=== PATIENT | female | born 1985 | race Caucasian/White ===

== ENCOUNTER 2016-04-27 10:09 | Day surgery (SDC) | payer OTHER ==
[~2016-04-27 10:09] MED LIST: ADULT LOW DOSE81 M1 PO; DENIES; FERROUS SULFATE PO; IBUPROFEN800 MG PO; IRON325 M1 PO; MACROBID 100 M100 MG PO; NORCO 5-325 TA1 EACH PO; PREFERA OB TAB1 EACH PO; PRENATAL PO; PROCARDIA10 MG PO; VISTARIL50 MG PO
== END 2016-04-27 15:35 ==
LOC: SHSB 10:09 → PACU 12:53 → SHSB 13:25
PROC: 10D17ZZ Extraction of Products of Conception, Retained, Via Natural or Artificial Opening (ICD-10-PCS; principal; 2016-04-27)
DX: O02.1 Missed abortion (principal)